=== PATIENT | male | born 1970 | race Caucasian/White ===

== ENCOUNTER 2016-10-26 18:19 | Emergency (ER) | payer OTHER ==
[~2016-10-26] VITALS: Ht 172.7 cm; Wt 59.1 kg
[2016-10-26 18:23] VITALS: BP 150/88; PULSE 106; RESP 18; O2SAT 97
--- NOTE | 2016-10-26 22:29 | ED.REPORT ---
HPI-Trauma Minor / Fall Date of Service Oct 26, 2016 ED Provider: Dr. Lopez Pt is a 46 year old male presenting to the ED complaining of several abrasions to his face. Pt reports that he was walking and then tripped and fell onto his face just prior to arrival. He denies LOC, sore neck, nausea, headache, bloody nose, or any other symptoms at this time. Nursing Notes Stated Complaint: FACIAL WOUNDS Chief Complaint: Laceration Nursing Notes Reviewed: Yes Allergies: Coded Allergies: No Known Allergies (Unverified , 10/26/16) General Time Seen by MD: 22:24 Chief Complaint Fall Hx Obtained From: Patient Arrived By: Walk-in Onset Occurred: Just prior to arrival Symptom Duration: Since onset Location: Face Quality: Painful Severity: Current: Mild Severity: Maximum: Mild Context: Immunizations Tetanus up to date Recent Healthcare: No recent doctor visit, No recent hospitalization Similar Sx Previous: No Past Medical History Past Medical History denies Past Surgical History denies Smoking History Unknown if Ever Smoker Ambulatory Status Independent Review of Systems Review of Systems Note: Multiple Abrasions to face Ears / Nose / Throat: Denies: Nose bleeding Musculoskeletal: Denies: Neck pain Neurologic: Denies: Change LOC, Headache Complete sys rev & neg: except as marked. GI: Denies: Nausea, Vomiting Physical Exam Initial Vital Signs Vital Signs (First) Date Time Temp Pulse Resp B/P Pulse Ox O2 Delivery O2 Flow Rate FiO2 10/26/16 18:23 36.8 106 18 150/88 97 Room Air Initial VS: Reviewed ENT: Mucous membranes moist, Conjunctiva normal, No scleral icterus Respiratory: No respiratory distress Abdomen / GI: No distention Extremities: Vascular intact, Neuro intact, No swelling, No tenderness Neurologic: Alert, Oriented, Nonfocal Psychiatric: Mood/affect normal, Behavior normal, Normal thought content General/Constitutional: Awake, Alert, No acute distress, Well appearing, Well developed Neck: Atraumatic, Supple, No meningismus, Full range of motion Head / Eyes: Normocephalic, PERRL, EOMI Dentition not acutely injured although poor. No nasal septal hematoma. Skin: Warm, Dry Abrasion to forehead, bridge of nose, and upper lip. Flap in philtrum. Procedures Laceration Management Time: 23:34 Procedure Performed by: ED physician Consent / Setup / Site Prep: Consent from patient, Time-out performed, Hand hygiene observed, Stand sterile technique Wound Length: 1 cm Local Anesthesia: Lidocaine w epi 1% Wound Preparation: Normal saline Irrigation: 50 cc # Sutures - Skin: 4 Post-Procedure / Complications: Antibiotic oint applied, Dressing applied, No complications, Condition improved, Tolerated procedure well, Patient stable Re-Eval/Medical Decision Re-Evaluation/Progress : Time of Eval: 23:35 Patient Status: Condition improved Re-Evaluation/Progress Note: Performed laceration management. Pt tolerated procedure well. Discussed plan for discharge. Pt understands and agrees. Counseled Regarding: Diagnosis, Lab results, Need for follow-up, When/why to return to ED Discharge & Departure Impression: Primary Impression: Laceration Disposition: Home Discharge Condition All VS Reviewed: Yes Condition: Improved Additional Instructions: Return in 5 days to have your sutures removed. apply antibiotic ointment daily. return to ED immediately for problems with wound. Referrals: [facility] Scribe Attestation Portions of this note were transcribed by Ping Zaragoza. I, Dr. Lopez personally performed the history, physical exam and medical decision-making; I reviewed and confirmed the accuracy of the information in the transcribed note. Signed by : Rosemarie Herr, 10/26/2016 at 2353. copies to: [facility] Mayur Lopez MD Oct 26, 2016 22:28 PING ZARAGOZA Oct 26, 2016 22:43
[2016-10-27 00:09] VITALS: BP 151/88; PULSE 87; RESP 16; O2SAT 96
== END 2016-10-27 00:06 | disposition home or self-care (01) ==
LOC: SED 18:19
DX: S01.81XA Laceration without foreign body of other part of head, initial encounter (principal); W01.0XXA Fall on same level from slipping, tripping and stumbling without subsequent striking against object, initial encounter; Y93.01 Activity, walking, marching and hiking; Y92.89 Other specified places as the place of occurrence of the external cause; Y99.8 Other external cause status

== ENCOUNTER 2016-10-31 14:26 | Emergency (ER) | payer OTHER ==
[2016-10-31 14:33] VITALS: BP 168/96; PULSE 83; RESP 16; O2SAT 98
== END 2016-10-31 16:08 | disposition home or self-care (01) ==
LOC: SED 14:26
DX: Z48.02 Encounter for removal of sutures (principal)